=== PATIENT | female | born 1945 | race Two or more races ===

== ENCOUNTER 2023-05-17 12:58 | Emergency (ER) | payer MEDICARE, OTHER ==
[~2023-05-17] VITALS: Ht 165.1 cm; Wt 72.6 kg
[2023-05-17] MEDS: KETOROLAC TROMETHAMINE INJ 30 MG/ML VIAL IM ONE (13:30)
[2023-05-17] MEDS: CYCLOBENZAPRINE 10 MG TABLET PO ONE (13:30)
[2023-05-17] MEDS ORDERED: KETOROLAC TROMETHAMINE INJ 30 MG/ML VIAL ONE (13:57)
[2023-05-17] MEDS ORDERED: CYCLOBENZAPRINE 10 MG TABLET ONE (13:58)
[2023-05-17] MEDS ORDERED: CYCL5TAB PO (14:00)
[2023-05-17 14:20] VITALS: BP 124/82; TEMP 98.2; O2SAT 98
== END 2023-05-17 14:20 | disposition home or self-care (01) ==
LOC: ER 13:00
DX: M25.511 Pain in right shoulder (principal)
CPT/HCPCS: 99283; 96372; 73030; J1885